=== PATIENT | male | born 1945 | race Caucasian/White ===

== ENCOUNTER 2019-05-23 09:00 | Outpatient (RCR) | payer MEDICARE, SELFPAY ==
[2019-05-09 10:23] VITALS: BP 161/84; PULSE 108; RESP 18; TEMP 36.1
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
[2019-05-16 08:30] VITALS: BP 159/81; PULSE 115; RESP 18; TEMP 35.5
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
[2019-05-23 09:31] VITALS: BP 134/82; PULSE 105; RESP 20; TEMP 36.4
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
== END 2019-05-29 23:59 ==
LOC: WC 09:00
PROVIDERS: PCP Family Medicine; Referring Provider Nurse Practitioner; Visit Provider Nurse Practitioner
DX: T24.231A Burn of second degree of right lower leg, initial encounter (principal); X08.8XXA Exposure to other specified smoke, fire and flames, initial encounter; Y93.89 Activity, other specified; Y92.73 Farm field as the place of occurrence of the external cause; R03.0 Elevated blood-pressure reading, without diagnosis of hypertension; H91.90 Unspecified hearing loss, unspecified ear; R00.0 Tachycardia, unspecified; Z86.14 Personal history of Methicillin resistant Staphylococcus aureus infection; T14.8XXA Other injury of unspecified body region, initial encounter; L08.9 Local infection of the skin and subcutaneous tissue, unspecified; A49.01 Methicillin susceptible Staphylococcus aureus infection, unspecified site; L97.811 Non-pressure chronic ulcer of other part of right lower leg limited to breakdown of skin
CPT/HCPCS: 11042; 11045; 87070; 87075; 87077; 87186; 87205; 99203; G0463

== ENCOUNTER 2019-06-06 10:00 | Outpatient (RCR) | payer MEDICARE, SELFPAY ==
[2019-05-30 00:58] VITALS: BP 134/82; PULSE 105; RESP 20; TEMP 36.4
[2019-05-30 10:08] VITALS: BP 118/66; PULSE 91; RESP 18; TEMP 36.6
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
[2019-06-06 10:40] VITALS: BP 117/75; PULSE 104; RESP 18; TEMP 36.6
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
== END 2019-06-28 23:59 ==
LOC: WC 10:00
PROVIDERS: PCP Family Medicine; Referring Provider Nurse Practitioner; Visit Provider Nurse Practitioner
DX: T24.231A Burn of second degree of right lower leg, initial encounter (principal); X08.8XXA Exposure to other specified smoke, fire and flames, initial encounter; Y93.89 Activity, other specified; Y92.73 Farm field as the place of occurrence of the external cause; T14.8XXA Other injury of unspecified body region, initial encounter; R03.0 Elevated blood-pressure reading, without diagnosis of hypertension; R00.0 Tachycardia, unspecified; L97.812 Non-pressure chronic ulcer of other part of right lower leg with fat layer exposed
CPT/HCPCS: 11042; 11045; 87070; 87075; 87205